=== PATIENT | female | born 1970 | race Caucasian/White ===

== ENCOUNTER 2016-09-10 18:41 | Emergency (ER) | payer OTHER ==
[2016-09-10 19:50] VITALS: BP 124/72
--- NOTE | 2016-09-10 19:55 | UC ---
General HPI - HPI Summary HPI Summary: For several days pt has been noticing worsening swelling in bilat ankles, L>R. Now having calf cramping and swelling in hands/wrists. Pt has hx of heart failure/resp failure about 2 years ago. Denies any SOB, chest pains, or activity intolerance. In the last 4-5 months battled prolonged respiratory infection with 4 rounds of abx and 5 rounds of steroids; most recent steroids finished about 3.5 weeks ago. Pt is trying to lose weight and has measured a 6 pound weight gain in the last 5 days. - History of Current Complaint Stated Complaint: LEFT FOOT INJURY Time Seen by Provider: 09/10/16 19:30 Hx Obtained From: Patient Onset/Duration: Gradual Onset, Lasting Days Timing: Constant Onset Severity: Mild Current Severity: Mild Associated Signs & Symptoms: Positive: Edema. Negative: Abdominal Pain, Anticoagulation Therapy, Cough, Chest Pain, Palpitations, Recent Medication Changes Related Hx: Recent Illness - bronchitis/pneumonia - Allergy/Home Medications Allergies/Adverse Reactions: Allergies Allergy/AdvReac Type Severity Reaction Status Date / Time Penicillins AdvReac Intermediate Rash Verified 09/10/16 19:31 Sulfa Drugs AdvReac Intermediate Rash And Verified 09/10/16 19:31 Itching PMH/Surg Hx/FS Hx/Imm Hx Endocrine History: Hypothyroidism Cardiovascular History: Congestive Heart Failure Respiratory History: COPD Other Respiratory History: hx resp failure - Surgical History Surgical History: Yes Surgery Procedure, Year, and Place: right foot 2014. Bronchoscopy 2013 AdenoidectomyMyringotomyExc Uterine polyp 2006 - Family History Known Family History: Positive: None - Social History Alcohol Use: None Substance Use Type: None Smoking Status (MU): Never Smoked Tobacco Have You Smoked in the Last Year: No - Immunization History Most Recent Influenza Vaccination: unsure Most Recent Tetanus Shot: unknown Most Recent Pneumonia Vaccination: never Review of Systems Constitutional: Negative Skin: Negative Eyes: Negative ENT: Negative Respiratory: Negative Cardiovascular: Negative Gastrointestinal: Negative Genitourinary: Negative Motor: Negative Neurovascular: Negative Musculoskeletal: Edema Neurological: Negative Psychological: Negative All Other Systems Reviewed And Are Negative: Yes Physical Exam Triage Information Reviewed: Yes Appearance: Well-Appearing, Obese Vital Signs: Initial Vital Signs Temp 98.0 F 09/10/16 19:20 Pulse 69 09/10/16 19:20 Resp 16 09/10/16 19:20 BP 124/72 09/10/16 19:20 Pulse Ox 99 09/10/16 19:20 Vital Signs Reviewed: Yes Eye Exam: Normal, Other - PERRL Eyes: Positive: Conjunctiva Clear ENT Exam: Normal ENT: Positive: Normal ENT inspection, Hearing grossly normal, Pharynx normal, TMs normal Dental Exam: Normal Neck exam: Normal Neck: Positive: Supple Respiratory Exam: Normal Respiratory: Positive: Chest non-tender, Lungs clear, Normal breath sounds, No respiratory distress, No accessory muscle use Cardiovascular Exam: Normal Cardiovascular: Positive: RRR, No Murmur Musculoskeletal: Positive: Edema @ - BUE, BLE Neurological Exam: Normal Neurological: Positive: Alert Psychological Exam: Normal Course/Dx - Differential Dx - Multi-Symptom Provider Diagnoses: peripheral edema with history of heart failure - Physician Notifications Discussed Patient Care With: Farzana Colon Time Discussed With Above Provider: 19:50 Instructed by Provider To: MD Will See In ED Discharge - Discharge Plan Condition: Stable Disposition: AGAINST MEDICAL ADVICE
== END 2016-09-10 19:58 | disposition left against medical advice (07) ==
LOC: UCCORT 18:41
DX: R60.0 Localized edema (principal); I50.9 Heart failure, unspecified; E03.9 Hypothyroidism, unspecified; E66.9 Obesity, unspecified; Z88.0 Allergy status to penicillin; Z88.2 Allergy status to sulfonamides
CPT/HCPCS: 99212; G0463

== ENCOUNTER 2016-09-10 21:34 | Emergency (ER) | payer OTHER ==
[2016-09-10] MEDS ORDERED: Aspirin Low Dose CHEW TAB* 81 MG PO ONE (22:48)
[2016-09-10 23:19] LABS: Hematocrit 41 % (35-47); Hemoglobin 13.5 g/dl (12.0-16.0); Mean Corpuscular HGB Conc 33 g/dl (31-36); Mean Corpuscular Hemoglobin 29 pg (27-31); Mean Corpuscular Volume 88 fL (80-97); Mean Platelet Volume 10 um3 (7.4-10.4); Red Cell Distribution Width 13 % (10.5-15); White Blood Count 11.5 10^3/ul (3.5-10.8)
[2016-09-10 23:31] LABS: Albumin 4.3 g/dL (3.2-5.2); BUN/Creatinine Ratio 27.5 (8-20); Calcium 9.4 mg/dL (8.6-10.3); EGFR African American 86.4 (>60); EGFR Non-African American 67.2 (>60); Globulin 2.7 g/dL (2-4); Magnesium 2.3 mg/dL (1.9-2.7); Potassium 3.9 mmol/L (3.5-5.0); Total Bilirubin 0.5 mg/dL (0.2-1.0)
[2016-09-10 23:33] LABS: Troponin I 0.01 ng/mL (<0.04)
[2016-09-10 23:39] LABS: T4 8.51 mcg/mL (6.09-12.23)
[2016-09-10 23:40] LABS: TSH (Thyroid Stimulating Horm) 0.7 mcIU/mL (0.34-5.60)
[2016-09-11 00:35] LABS: Urine Bilirubin Negative (Negative); Urine Glucose Negative (Negative); Urine Nitrite Negative (Negative)
[2016-09-11 01:56] VITALS: BP 107/66
--- NOTE | 2016-09-11 02:43 | ED ---
Sav Rivera Thomas, scribed for Farzana Colon MD on 09/10/16 at 2305 . Lower Extremity - HPI Summary HPI Summary: The pt is a 43 y/o F with a Hx of heart failure [place] [facility] [place] to the ED c/o bilateral pedal edema (L>R) that began about a week ago. Two years ago, she had heart and respiratory failure. She additionally c/o recent weight gain (6 pounds in the last 5 days), bilateral leg pain, calf cramping, hand swelling, and hoarseness. The pt denies CP, SOB,fever and dyspnea on exertion. She rates her current pain level 8/10 in her legs. She reports past pedal edema similar to her symptoms now. An echocardiogram performed two years ago showed an ejection fraction of 50%. In the last 4-5 months she has had prolonged respiratory infection of PNA with 4 rounds of antibiotics and 5 rounds of steroids. Her most recent course of steroids was completed 3.5 weeks ago. PMHx: CHF, pulmonary hypertension, PNA, ventricular ectopy, tracheomalacia, ventricular bigeminy, bronchomalasia, chronic bronchitis , GERD. PSHx: bronchoscopy 2012, adenoidectomy, myringotomy. SHx: no alcohol, no illicit drugs, never smoked tobacco. FHx: colon polyps, DM. She says that she has recently cut down on her sodium intake. Her next appointment with her visual display manager is in three months. She has seen Dr. Pepper for the hoarseness without definite dx, and she has also been endoscoped by Dr. Oh without definite dx of her hoarseness. Pt states that the left ankle and foot pain is new and she has not sought medical attention for this yet. She does not recall any definite injury. She has had surgery on her right foot with Dr. Soriano ( tour production supervisor). Also sees Dr. Ocasio, Dr. Manzano and Dr. Baker. - History of Current Complaint Chief Complaint: EDGeneral Stated Complaint: SWELLING IN LT FT Time Seen by Provider: 09/10/16 22:20 Hx Obtained From: Patient Hx Last Menstrual Period: MIRENA Mechanism Of Injury: Unknown - no known injury Onset of Pain: Days - 6 days Onset/Duration: Days Severity Initially: Moderate Severity Currently: Severe Pain Intensity: 8 Pain Scale Used: 0-10 Numeric Timing: Constant Location: Is Discrete @ - bilat LE, left worse than right Character Of Pain: Aching Associated Signs And Symptoms: Positive: Swelling - pedal, L>R, Other - POS: recent weight gain, calf cramping. Negative: Fever Aggravating Factor(s): Nothing Alleviating Factor(s): Nothing Able to Bear Weight: Yes Related History: Other - Hx of heart failure and pedal edema - Allergies/Home Medications Allergies/Adverse Reactions: Allergies Allergy/AdvReac Type Severity Reaction Status Date / Time ERIKA Inhibitors Allergy Unknown Verified 09/10/16 22:08 Reaction Details Penicillins AdvReac Intermediate Rash Verified 09/10/16 19:31 Sulfa Drugs AdvReac Intermediate Rash And Verified 09/10/16 19:31 Itching Home Medications: Home Medications Calcium Ascorbate [Vitamin C] 500 mg PO DAILY 09/10/16 [History Confirmed ] PMH/Surg Hx/FS Hx/Imm Hx Previously Healthy: No Endocrine/Hematology History: Reports: Hx Thyroid Disease - hypothyroidism, Hx Anemia - HX OF MILD IN THE PAST Denies: Hx Diabetes Cardiovascular History: Reports: Hx Congestive Heart Failure, Other Cardiovascular Problems/Disorders - IRREGULAR RHYTHM, pulmonary hypertension, ventricular ectopy Denies: Hx Hypertension Respiratory History: Reports: Hx Asthma, Hx Chronic Bronchitis, Hx Pneumonia, Hx Sleep Apnea, Other Respiratory Problems/Disorders - Bronchomalasia, PNA, tracheomalacia Denies: Hx Chronic Obstructive Pulmonary Disease (COPD) GI History: Reports: Hx Gastroesophageal Reflux Disease Denies: Hx Ulcer Musculoskeletal History: Reports: Other Musculoskeletal History - Bilateral feet cysts Sensory History: Denies: Hx Contacts or Glasses, Hx Hearing Aid Opthamlomology History: Denies: Hx Contacts or Glasses Psychiatric History: Reports: Hx Depression, Other Psychiatric Issues/Disorders - OCD - Surgical History Surgery Procedure, Year, and Place: Bronchoscopy 2013 AdenoidectomyMyringotomyExc Uterine polyp 2006 Hx Anesthesia Reactions: Yes - NAUSEA Infectious Disease History: No Infectious Disease History: Denies: Hx Hepatitis, Hx Human Immunodeficiency Virus (HIV), Traveled Outside the [place] in Last 30 Days - Family History Known Family History: Positive: Other - daughter with achalasia - Social History Lives: With Family Alcohol Use: None Substance Use Type: Reports: None Smoking Status (MU): Never Smoked Tobacco Have You Smoked in the Last Year: No Review of Systems Positive: Other - POS: recent weight gain. Negative: Fever Eyes: Negative ENT: Negative Positive: Other - POS: voice hoarseness Cardiovascular: Negative Negative: Chest Pain Respiratory: Negative Negative: Shortness Of Breath, Other - NEG: dyspnea on exertion Gastrointestinal: Negative Genitourinary: Negative Positive: Edema - pedal, onset 7 days ago, L>R, Other - POS: calf cramping, bilateral leg pain, hand swelling Skin: Negative Neurological: Negative Psychological: Normal All Other Systems Reviewed And Are Negative: Yes Physical Exam Triage Information Reviewed: Yes Vital Signs On Initial Exam: Initial Vitals Temp Pulse Resp BP Pulse Ox 97.1 F 67 18 128/66 97 09/10/16 21:38 09/10/16 21:38 09/10/16 21:38 09/10/16 21:38 09/10/16 21:38 Vital Signs Reviewed: Yes Appearance: Positive: Well-Appearing, Well-Nourished, Pain Distress Skin: Positive: Warm, Skin Color Reflects Adequate Perfusion Head/Face: Positive: Normal Head/Face Inspection Eyes: Positive: Conjunctiva Clear ENT: Positive: Normal ENT inspection Neck: Positive: Supple Respiratory/Lung Sounds: Positive: Clear to Auscultation, Breath Sounds Present , Other - No respiratory distress Cardiovascular: Positive: RRR, Pulses are Symmetrical in both Upper and Lower Extremities, Other - Brisk cap refill. Negative: Rub Abdomen Description: Positive: Nontender, Soft. Negative: Splenomegaly Musculoskeletal: Positive: Strength/ROM Intact, Edema Left, Edema Right, Other - exquisite pain left post tibial tendon, pain left base 5th metatarsal, swelling lat malleolus left ankle Neurological: Positive: Sensory/Motor Intact, Alert, Oriented to Person Place, Time, Speech Normal Psychiatric: Positive: Normal Diagnostics - Vital Signs Vital Signs Temp Pulse Resp BP Pulse Ox 09/10/16 21:49 98 F 67 18 128/66 98 09/10/16 21:38 97.1 F 67 18 128/66 97 - Laboratory Lab Results: Lab Results 09/10/16 09/10/16 09/10/16 Range/Units 22:35 22:35 22:35 WBC 11.5 H (3.5-10.8) 10^3/ul RBC 4.60 (4.0-5.4) 10^6/ul Hgb 13.5 (12.0-16.0) g/dl Hct 41 (35-47) % MCV 88 (80-97) fL MCH 29 (27-31) pg MCHC 33 (31-36) g/dl RDW 13 (10.5-15) % Plt Count 284 (150-450) 10^3/ul MPV 10 (7.4-10.4) um3 Neut % (Auto) 66.4 (38-83) % Lymph % (Auto) 26.2 (25-47) % [place] % (Auto) 5.0 (1-9) % Eos % (Auto) 1.5 (0-6) % Baso % (Auto) 0.9 (0-2) % Absolute Neuts (auto) 7.7 (1.5-7.7) 10^3/ul Absolute Lymphs (auto) 3.0 (1.0-4.8) 10^3/ul Absolute Monos (auto) 0.6 (0-0.8) 10^3/ul Absolute Eos (auto) 0.2 (0-0.6) 10^3/ul Absolute Basos (auto) 0.1 (0-0.2) 10^3/ul Absolute Nucleated RBC 0.01 10^3/ul Nucleated RBC % 0.1 INR (Anticoag Therapy) (0.89-1.11) APTT (26.0-36.3) seconds D-Dimer, Quantitative (Less Than 230) ng/mL Sodium 135 (133-145) mmol/L Potassium 3.9 (3.5-5.0) mmol/L Chloride 104 (101-111) mmol/L Carbon Dioxide 24 (22-32) mmol/L Anion Gap 7 (2-11) mmol/L BUN 25 H (6-24) mg/dL Creatinine 0.91 (0.51-0.95) mg/dL Est GFR ( Amer) 86.4 (>60) Est GFR (Non-Af Amer) 67.2 (>60) BUN/Creatinine Ratio 27.5 H (8-20) Glucose 89 (70-100) mg/dL Lactic Acid 0.9 (0.5-2.0) mmol/L Calcium 9.4 (8.6-10.3) mg/dL Magnesium 2.3 (1.9-2.7) mg/dL Total Bilirubin 0.50 (0.2-1.0) mg/dL AST 20 (13-39) U/L ALT 19 (7-52) U/L Alkaline Phosphatase 63 (34-104) U/L Total Creatine Kinase 178 (10-223) U/L Troponin I 0.01 (<0.04) ng/mL B-Natriuretic Peptide ( - 100) pg/mL Total Protein 7.0 (6.4-8.9) g/dL Albumin 4.3 (3.2-5.2) g/dL Globulin 2.7 (2-4) g/dL Albumin/Globulin Ratio 1.6 (1-3) TSH 0.70 (0.34-5.60) mcIU/mL Thyroxine (T4) 8.51 (6.09-12.23) mcg/mL Beta HCG, Quant 0.86 mIU/mL Urine Color Urine Appearance Urine pH (5-9) Ur Specific [place] (1.010-1.030) Urine Protein (Negative) Urine Ketones (Negative) Urine Blood (Negative) Urine Nitrate (Negative) Urine Bilirubin (Negative) Urine Urobilinogen (Negative) Ur Leukocyte Esterase (Negative) Urine Glucose (Negative) Urine Ascorbic Acid (Negative) 09/10/16 09/10/16 09/10/16 Range/Units 22:35 22:35 23:57 WBC (3.5-10.8) 10^3/ul RBC (4.0-5.4) 10^6/ul Hgb (12.0-16.0) g/dl Hct (35-47) % MCV (80-97) fL MCH (27-31) pg MCHC (31-36) g/dl RDW (10.5-15) % Plt Count (150-450) 10^3/ul MPV (7.4-10.4) um3 Neut % (Auto) (38-83) % Lymph % (Auto) (25-47) % [place] % (Auto) (1-9) % Eos % (Auto) (0-6) % Baso % (Auto) (0-2) % Absolute Neuts (auto) (1.5-7.7) 10^3/ul Absolute Lymphs (auto) (1.0-4.8) 10^3/ul Absolute Monos (auto) (0-0.8) 10^3/ul Absolute Eos (auto) (0-0.6) 10^3/ul Absolute Basos (auto) (0-0.2) 10^3/ul Absolute Nucleated RBC 10^3/ul Nucleated RBC % INR (Anticoag Therapy) 0.87 L (0.89-1.11) APTT 29.2 (26.0-36.3) seconds D-Dimer, Quantitative < 200 (Less Than 230) ng/mL Sodium (133-145) mmol/L Potassium (3.5-5.0) mmol/L Chloride (101-111) mmol/L Carbon Dioxide (22-32) mmol/L Anion Gap (2-11) mmol/L BUN (6-24) mg/dL Creatinine (0.51-0.95) mg/dL Est GFR ( Amer) (>60) Est GFR (Non-Af Amer) (>60) BUN/Creatinine Ratio (8-20) Glucose (70-100) mg/dL Lactic Acid (0.5-2.0) mmol/L Calcium (8.6-10.3) mg/dL Magnesium (1.9-2.7) mg/dL Total Bilirubin (0.2-1.0) mg/dL AST (13-39) U/L ALT (7-52) U/L Alkaline Phosphatase (34-104) U/L Total Creatine Kinase (10-223) U/L Troponin I (<0.04) ng/mL B-Natriuretic Peptide 84 ( - 100) pg/mL Total Protein (6.4-8.9) g/dL Albumin (3.2-5.2) g/dL Globulin (2-4) g/dL Albumin/Globulin Ratio (1-3) TSH (0.34-5.60) mcIU/mL Thyroxine (T4) (6.09-12.23) mcg/mL Beta HCG, Quant mIU/mL Urine Color Yellow Urine Appearance Clear Urine pH 6.0 (5-9) Ur Specific [place] 1.013 (1.010-1.030) Urine Protein Negative (Negative) Urine Ketones Negative (Negative) Urine Blood Negative (Negative) Urine Nitrate Negative (Negative) Urine Bilirubin Negative (Negative) Urine Urobilinogen Negative (Negative) Ur Leukocyte Esterase Negative (Negative) Urine Glucose Negative (Negative) Urine Ascorbic Acid * H (Negative) Result Diagrams: 09/10/16 22:35 09/10/16 22:35 Lab Statement: Any lab studies that have been ordered have been reviewed, and results considered in the medical decision making process. - EKG 22:20 Cardiac Rate: NL - 92 BPM EKG Rhythm: Sinus Rhythm - Normal AV, normal IV conduction time, normal QTc, normal axis, ventricular bigeminy EKG Comparison: No Significant Change - to 06/29/2014 Re-Evaluation - Re-Evaluation First Eval Re-Evaluation Time: 00:25 - ankle and foot pain and swelling is new. Will check xrays Change: Unchanged Lower Extremity Course/Dx - Course Assessment/Plan: The pt is a 43 y/o F with a Hx of heart failure [place] [facility] [place] to the ED c/o bilateral pedal edema (L>R) that began about a week ago. Two years ago, she had heart and respiratory failure. She additionally c/o recent weight gain (6 pounds in the last 5 days), bilateral leg pain, calf cramping, hand swelling, and hoarseness. The pt denies CP, SOB, and dyspnea on exertion. She rates her current pain level 8/10. She reports past pedal edema similar to her symptoms now. An echocardiogram performed two years ago showed an ejection fraction of 50%. In the last 4-5 months she has had prolonged respiratory infection of PNA with 4 rounds of antibiotics and 5 rounds of steroids. Her most recent course of steroids was completed 3.5 weeks ago. PMHx: CHF, pulmonary hypertension, PNA, ventricular ectopy, tracheomalacia , ventricular bigeminy, bronchomalasia, chronic bronchitis, GERD. PSHx: bronchoscopy 2013, adenoidectomy, myringotomy. SHx: no alcohol, no illicit drugs , never smoked tobacco. FHx: colon polyps, DM. She says that she has recently cut down on her sodium intake. Her next appointment with her visual display manager is in three months. An EKG taken at 22:20 revealed sinus rhythm at 92 BPM, normal AV, normal IV conduction time, normal QTc, normal axis, ventricular bigeminy, and compared to 06/29/2014 there is no change. CXR reveals __NAD per ED MD reading. Bloodwork shows WBC 11.5., BUN 25, BUN/Creatinine 27.5. UA shows _sp grav 1.013, all neg except ascorbic acid. Xray of ankle and foot on left both neg per ED MD reading. Patients medication reviewed this visit. Blood pressure noted. In the ED course she was given ASA. Patient is diagnosed with pedal edema and left ankle sprain. Patient will be placed in CAM boot with crutches and non weight bearing and advised to follow up with her physicians and orthopedics this week. Pt is agreeable with this plan. - Diagnoses Differential Diagnosis/HQI/PQRI: Positive: Cellulitis, Fracture (Closed), Sprain , Strain, Other - CHF, hypothyroidism Provider Diagnoses: Pedal edema, Leg pain, left, Ventricular bigeminy Discharge - Discharge Plan Condition: Stable Disposition: HOME Patient Education Materials: Ankle Sprain (ED), Crutch Instructions (ED), Leg Edema (ED) Referrals: Levy Baker MD [Primary Care Provider] - 7 Days (sooner, if worse ) Delphine Gregorio MD [Medical Doctor] - As Soon As Possible Additional Instructions: Your labs did not reveal an obvious source for your leg edema tonight. Your chest xray unofficial reading was no acute disease. We will contact you if there is a change in the reading. Your EKG showed the bigeminy that you state you have had. Wear the CAM boot and use the crutches without bearing weight until you are evaluated by orthopedics. The unofficial reading of your ankle and foot xrays is no fracture noted. Have definite follow up with all of your physicians. Return to the ER if you have any new or worsening symptoms. The documentation as recorded by the Sav nova Thomas accurately reflects the service I personally performed and the decisions made by me, Farzana Colon MD.
--- NOTE | 2016-09-11 07:24 | RAD ---
INDICATION: Edema, history of cardiomyopathy. COMPARISON: Comparison is made with a prior chest x-ray study from June 07, 2016. TECHNIQUE: Dual-energy PA and lateral views of the chest were obtained. FINDINGS: The heart is within normal limits in size. Mediastinal and hilar contours appear within normal limits. The lungs are clear. No pleural effusion is present. There is mild deformity of the right sixth and seventh lateral ribs most consistent with old fractures which are unchanged. IMPRESSION: NO EVIDENCE FOR ACTIVE CARDIOPULMONARY DISEASE.
--- NOTE | 2016-09-11 07:31 | RAD ---
INDICATION: Atraumatic pain and swelling. TECHNIQUE: 3 views of the left ankle were obtained. FINDINGS: There is diffuse soft tissue swelling. No acute fracture is seen. There is mild lucency noted along the lateral superior articular surface of the talus on one view possibly representing an osteochondral lesion although nonspecific. Joint spaces appear maintained. No erosive changes are seen. There are moderate size calcaneal spurs. There is mild osteoarthritic change in the tibiotalar joint. IMPRESSION: 1. DIFFUSE SOFT TISSUE SWELLING. 2. POSSIBLE SMALL OSTEOCHONDRAL LESION LATERAL TALUS. 3. MILD OSTEOARTHRITIC CHANGE.
--- NOTE | 2016-09-11 07:32 | RAD ---
INDICATION: Left foot injury. TECHNIQUE: 3 views of the left foot were obtained. FINDINGS: There is soft tissue swelling around the mid and hindfoot. No fracture or significant focal osseous abnormality is seen. Joint spaces appear maintained. IMPRESSION: SOFT TISSUE SWELLING.
== END 2016-09-11 02:47 | disposition home or self-care (01) ==
LOC: ED 21:34
DX: M79.605 Pain in left leg (principal); R00.8 Other abnormalities of heart beat; R60.0 Localized edema
CPT/HCPCS: 36415; 71020; 80053; 81003; 82550; 83605; 83735; 83880; 84436; 84443; 84484; 84702; 85025; 85379; 85610; 85730; 93005; 99284

== ENCOUNTER 2018-04-24 14:24 | Emergency (ER) | payer OTHER ==
[2018-04-24 16:11] VITALS: BP 110/57
--- NOTE | 2018-04-24 16:20 | UC ---
Lower Extremity/Ankle HPI - HPI Summary HPI Summary: 48 yo female with left ankle pain and foot pain s/p slip and fall on ice tender medial ankle and lateral foot see manager group - History of Current Complaint Chief Complaint: UCLowerExtremity Stated Complaint: LEFT FOOT PAIN Time Seen by Provider: 04/24/18 16:11 Hx Obtained From: Patient Hx Last Menstrual Period: IUD Onset/Duration: Sudden Onset, Lasting Weeks Severity Initially: Severe Severity Currently: Moderate Pain Intensity: 8 Pain Scale Used: 0-10 Numeric Aggravating Factor(s): Standing, Ambulation Alleviating Factor(s): Rest, Elevation Able to Bear Weight: Yes - Allergies/Home Medications Allergies/Adverse Reactions: Allergies Allergy/AdvReac Type Severity Reaction Status Date / Time ERIKA Inhibitors Allergy Unknown Unknown Verified 04/24/18 16:07 Reaction Details Penicillins Allergy Unknown Rash Verified 04/24/18 16:07 Sulfa (Sulfonamide Allergy Unknown Rash And Verified 04/24/18 16:07 Antibiotics) Itching PMH/Surg Hx/FS Hx/Imm Hx Previously Healthy: Yes Endocrine History: Dyslipidemia Cardiovascular History: Hypertension Respiratory History: Asthma - Surgical History Surgical History: Yes Surgery Procedure, Year, and Place: Bronchoscopy 2012 Adenoidectomy; Myringotomy Exc; Uterine polyp 2005. 09/2013 RIGHT FOOT REMOVED CYSTS - Family History Known Family History: Positive: None, Other - daughter with achalasia - Social History Alcohol Use: None Substance Use Type: None Smoking Status (MU): Never Smoked Tobacco Have You Smoked in the Last Year: No - Immunization History Most Recent Influenza Vaccination: unsure Most Recent Tetanus Shot: unknown Most Recent Pneumonia Vaccination: never Review of Systems All Other Systems Reviewed And Are Negative: Yes Constitutional: Positive: Negative Skin: Positive: Negative Eyes: Positive: Negative ENT: Positive: Negative Respiratory: Positive: Negative Cardiovascular: Positive: Negative Gastrointestinal: Positive: Negative Genitourinary: Positive: Negative Motor: Positive: Negative Neurovascular: Positive: Negative Musculoskeletal: Positive: Arthralgia Neurological: Positive: Negative Psychological: Positive: Negative Physical Exam Triage Information Reviewed: Yes Appearance: Well-Appearing, No Pain Distress, Well-Nourished Vital Signs: Initial Vital Signs Temp 97.8 F 04/24/18 16:04 Pulse 70 04/24/18 16:04 Resp 18 04/24/18 16:04 BP 110/57 04/24/18 16:04 Pulse Ox 97 04/24/18 16:04 Vital Signs Reviewed: Yes Eyes: Positive: Conjunctiva Clear ENT: Positive: Hearing grossly normal. Negative: Nasal congestion, Nasal drainage, Trismus, Muffled voice, Hoarse voice Dental Exam: Normal Neck: Positive: Nontender, No Lymphadenopathy Respiratory: Positive: Lungs clear, Normal breath sounds, No respiratory distress, No accessory muscle use Cardiovascular: Positive: RRR, No Murmur Musculoskeletal: Positive: Edema @ - MM left, tender here and base of 5th Neurological: Positive: Alert Psychological Exam: Normal Skin Exam: Normal Images Feet (Multiple View): 1 - tender /swollen 2 - tender Diagnostics - Radiology No standard instances Radiology Interpretation Completed By: Radiologist Summary of Radiographic Findings: left foot and ankle no fx Lower Extremity Course/Dx - Differential Dx/Diagnosis Provider Diagnosis: Sprain of left medial ankle joint, Sprain of left foot Discharge - Sign-Out/Discharge Documenting (check all that apply): Patient Departure All imaging exams completed and their final reports reviewed: Yes - Discharge Plan Condition: Stable Disposition: HOME Patient Education Materials: Ankle Sprain (ED) Referrals: Tiffani Alvarado MD [Primary Care Provider] - Additional Instructions: erika splint ice see your orthopedist re ankle sprain and see your manager group as planned - Billing Disposition and Condition Condition: STABLE Disposition: Home
== END 2018-04-24 17:47 | disposition home or self-care (01) ==
LOC: UCCORT 14:24
DX: S93.402A Sprain of unspecified ligament of left ankle, initial encounter (principal); I10 Essential (primary) hypertension; J45.909 Unspecified asthma, uncomplicated; Z88.1 Allergy status to other antibiotic agents; Z88.0 Allergy status to penicillin; Z88.8 Allergy status to other drugs, medicaments and biological substances; W00.0XXA Fall on same level due to ice and snow, initial encounter; Y92.9 Unspecified place or not applicable
CPT/HCPCS: 99213; G0463

== ENCOUNTER 2018-05-16 18:37 | Emergency (ER) | payer OTHER ==
[2018-05-16 21:18] VITALS: BP 123/67
--- NOTE | 2018-05-16 21:31 | UC ---
Throat Pain/Nasal Krunal HPI - HPI Summary HPI Summary: Pt c/o nasal congestion, cough and sinus pressure and pain, right side sinus more painful than left - History of Current Complaint Chief Complaint: UCGeneralIllness Stated Complaint: POSSIBLE SINUS INFECTION Time Seen by Provider: 05/16/18 21:12 Hx Obtained From: Patient Hx Last Menstrual Period: mirena ?: No Onset/Duration: Gradual Onset, Lasting Days, Still Present Severity: Moderate Pain Intensity: 4 Cough: Nonproductive Associated Signs & Symptoms: Positive: Sinus Discomfort, Nasal Discharge - Epiglottits Risk Factors Epiglottis Risk Factors: Negative - Allergies/Home Medications Allergies/Adverse Reactions: Allergies Allergy/AdvReac Type Severity Reaction Status Date / Time ERIKA Inhibitors Allergy Unknown Unknown Verified 05/16/18 21:13 Reaction Details Penicillins Allergy Unknown Rash Verified 05/16/18 21:13 Sulfa (Sulfonamide Allergy Unknown Rash And Verified 05/16/18 21:13 Antibiotics) Itching Home Medications: Home Medications Cyanocobalamin TAB* [Vitamin B12 TAB*] 3,000 mcg PO DAILY 05/16/18 [History Confirmed 05/16/18] guaiFENesin [Mucinex] 1,200 mg PO ONCE 05/16/18 [History Confirmed 05/16/18] PMH/Surg Hx/FS Hx/Imm Hx Previously Healthy: Yes Cardiovascular History: Hypertension - Surgical History Surgical History: Yes Surgery Procedure, Year, and Place: Bronchoscopy 2012 Adenoidectomy; Myringotomy Exc; Uterine polyp 09/2013 RIGHT FOOT REMOVED CYSTS - Family History Known Family History: Positive: Cardiac Disease, Other - daughter with achalasia - Social History Occupation: Employed Full-time Lives: With Family Alcohol Use: None Substance Use Type: None Smoking Status (MU): Never Smoked Tobacco Have You Smoked in the Last Year: No - Immunization History Most Recent Influenza Vaccination: unsure Most Recent Tetanus Shot: unknown Most Recent Pneumonia Vaccination: never Review of Systems All Other Systems Reviewed And Are Negative: Yes Constitutional: Positive: Fatigue Skin: Positive: Negative Eyes: Positive: Negative ENT: Positive: Nasal Discharge, Sinus Congestion, Sinus Pain/Tenderness Respiratory: Positive: Cough Cardiovascular: Positive: Negative Gastrointestinal: Positive: Negative Genitourinary: Positive: Negative Motor: Positive: Negative Neurovascular: Positive: Negative Musculoskeletal: Positive: Myalgia Neurological: Positive: Headache Psychological: Positive: Negative Is Patient Immunocompromised?: No Physical Exam Triage Information Reviewed: Yes Appearance: Ill-Appearing, Obese Vital Signs: Initial Vital Signs Temp 98.7 F 05/16/18 21:10 Pulse 82 05/16/18 21:10 Resp 18 05/16/18 21:10 BP 123/67 05/16/18 21:10 Pulse Ox 99 05/16/18 21:10 Vital Signs Reviewed: Yes Eye Exam: Normal ENT: Positive: Nasal congestion, Sinus tenderness Dental Exam: Normal Neck exam: Normal Respiratory Exam: Normal Cardiovascular Exam: Normal Cardiovascular: Positive: Murmur:Sys:Grade _?_/ Musculoskeletal Exam: Normal Neurological Exam: Normal Psychological Exam: Normal Skin Exam: Normal Throat Pain/Nasal Course/Dx - Differential Dx/Diagnosis Differential Diagnosis/HQI/PQRI: Influenza, Sinusitis, URI Provider Diagnosis: Sinusitis Discharge - Sign-Out/Discharge Documenting (check all that apply): Patient Departure All imaging exams completed and their final reports reviewed: No Studies - Discharge Plan Condition: Stable Disposition: HOME Prescriptions: DOXYcycline CAP(*) [DOXYcycline 100MG CAP(*)] 100 mg PO Q12H #20 cap Patient Education Materials: Sinusitis (ED) Referrals: Tiffani Alvarado MD [Primary Care Provider] - If Needed - Billing Disposition and Condition Condition: STABLE Disposition: Home
[2018-05-16] MEDS ORDERED: DOXYcycline CAP(*) 100 MG PO ONE (21:32)
== END 2018-05-16 21:44 | disposition home or self-care (01) ==
LOC: EDUNIT# → UCCORT 18:37
DX: J32.9 Chronic sinusitis, unspecified (principal); I10 Essential (primary) hypertension; Z88.0 Allergy status to penicillin; Z88.2 Allergy status to sulfonamides; Z91.09 Other allergy status, other than to drugs and biological substances
CPT/HCPCS: 99212; A9270-GY; G0463

== ENCOUNTER 2018-09-23 12:42 | Emergency (ER) | payer OTHER ==
--- NOTE | 2018-09-23 13:22 | UC ---
Complaint Female HPI - HPI Summary HPI Summary: 48 yo female presents with right flank pain since yesterday. She tells me that she has a history of ovarian cysts, uterine fibroids, and many UTIs. Last night she developed right flank pain that felt better with ibuprofen. She feels that she has to "push" to urinate and her bladder doesn't feel empty. Today the right flank pain is improved, but is having right pelvic pain mild. She has not taken anything today for her symptoms. Denies fever, chills hematuria, n/v/d/c, burning urination, urinary frequency, vaginal discharge or bleeding. No hx of kidney stones. - History Of Current Complaint Stated Complaint: URINARY Time Seen by Provider: 09/23/18 13:22 Hx Obtained From: Patient Hx Last Menstrual Period: mirena Onset/Duration: Sudden Onset Severity Initially: Moderate Severity Currently: Mild Pain Intensity: 4 Pain Scale Used: 0-10 Numeric - Allergies/Home Medications Allergies/Adverse Reactions: Allergies Allergy/AdvReac Type Severity Reaction Status Date / Time ERIKA Inhibitors Allergy Unknown Unknown Verified 09/23/18 13:25 Reaction Details Penicillins Allergy Unknown Rash Verified 09/23/18 13:25 Sulfa (Sulfonamide Allergy Unknown Rash And Verified 09/23/18 13:25 Antibiotics) Itching Home Medications: Home Medications Albuterol HFA INHALER* [Ventolin HFA Inhaler*] 1 - 2 puff INH Q4H PRN 09/23/18 [ History Confirmed 09/23/18] Levothyroxine TAB* [Synthroid TAB*] 25 mcg PO DAILY 09/23/18 [History Confirmed 09/23/18] Pantoprazole TAB * [Protonix TAB*] 40 mg PO BID 09/23/18 [History Confirmed 06/08] PMH/Surg Hx/FS Hx/Imm Hx Endocrine History: Hypothyroidism Cardiovascular History: Hypertension Respiratory History: Asthma - Surgical History Surgical History: Yes Surgery Procedure, Year, and Place: Bronchoscopy 2012 Adenoidectomy; Myringotomy Exc; Uterine polyp 2005. 09/2013 RIGHT FOOT REMOVED CYSTS - Family History Known Family History: Positive: Cardiac Disease, Other - daughter with achalasia - Social History Lives: With Family Alcohol Use: None Substance Use Type: None Smoking Status (MU): Never Smoked Tobacco Have You Smoked in the Last Year: No - Immunization History Most Recent Influenza Vaccination: unsure Most Recent Tetanus Shot: unknown Most Recent Pneumonia Vaccination: never Review of Systems All Other Systems Reviewed And Are Negative: Yes Constitutional: Positive: Negative Skin: Positive: Negative Respiratory: Positive: Negative Cardiovascular: Positive: Negative Gastrointestinal: Positive: Negative Genitourinary: Positive: Other - Right flank pain Neurovascular: Positive: Negative Musculoskeletal: Positive: Negative Neurological: Positive: Negative Psychological: Positive: Negative Physical Exam - Summary Physical Exam Summary: GENERAL: NAD. WDWN. No pain distress. SKIN: No rashes, sores, lesions, or open wounds. NECK: Supple. Nontender. No lymphadenopathy. CHEST: CTAB. No r/r/w. No accessory muscle use. Breathing comfortably and in no distress. CV: Pulses intact. Cap refill <2seconds ABDOMEN: Soft. NTTP. No distention or guarding. No CVA tenderness. Bowel sounds present NEURO: Alert. PSYCH: Age appropriate behavior. Triage Information Reviewed: Yes Vital Signs: Vital Signs: Temp Pulse Resp BP Pulse Ox 97.3 F 66 15 108/53 99 09/23/18 13:23 09/23/18 13:23 09/23/18 13:23 09/23/18 13:23 09/23/18 13:23 Laboratory Tests 09/23/18 13:37 POC Urine Color Yellow POC Urine Clarity Clear POC Urine pH 5.5 POC Ur Specif [place] 1.025 POC Urine Protein Negative POC Ur Glucose (UA) Negative POC Urine Ketones Negative POC Urine Blood Negative POC Urine Nitrite Negative POC Urine Bilirubin Negative POC Urine Urobilinogen 0.2 POC U Leukocyte Esteras Negative Vital Signs Reviewed: Yes Complaint Female Dx - Course Course Of Treatment: UA negative. Pt declined pelvic exam today to further evaluate. CT abd/pelv: IMPRESSION: 1. A 5 MM CALCULUS IS SEEN NEAR THE RIGHT URETEROVESICULAR JUNCTION WITH ONLY MILD UPSTREAM HYDRONEPHROSIS. NO PERIRENAL FLUID COLLECTION OR STRANDING IS IDENTIFIED. 2. ADDITIONAL PUNCTATE NONOBSTRUCTIVE CALCULI ARE SEEN IN THE KIDNEYS BILATERALLY. 3. THERE IS AN IUD IN THE UTERUS. Discussed results with pt. Will start her on flomax and refer her to Urology. - Differential Dx/Diagnosis Provider Diagnosis: Kidney stone Discharge - Sign-Out/Discharge Documenting (check all that apply): Patient Departure All imaging exams completed and their final reports reviewed: Yes - Discharge Plan Condition: Stable Disposition: HOME Prescriptions: Tamsulosin CAP* [Flomax CAP*] 0.4 mg PO DAILY #7 cap Patient Education Materials: Kidney Stones (ED) Referrals: Tiffani Alvarado MD [Primary Care Provider] - Cliff Dee MD [Medical Doctor] - 1 Week Additional Instructions: If you develop a fever, shortness of breath, chest pain, new or worsening symptoms - please call your PCP or go to the ED immediately. Your urine showed no sign of infection today. Your CT scan showed a kidney stone in the area of pain. Please take the medications as prescribed and I recommend that you follow up with Urology at the number below within 1 week - Billing Disposition and Condition Condition: STABLE Disposition: Home
[2018-09-23 13:30] VITALS: BP 108/53
[2018-09-23] MEDS ORDERED: Ketorolac *IM* INJ* 60 MG/2 ML VIAL IM ONE (13:53)
== END 2018-09-23 14:44 | disposition home or self-care (01) ==
LOC: UCCORT 12:42
DX: N20.0 Calculus of kidney (principal); I10 Essential (primary) hypertension; J45.909 Unspecified asthma, uncomplicated; E03.9 Hypothyroidism, unspecified
CPT/HCPCS: 74176; 81003; 96372; 99212; G0463; J1885

== ENCOUNTER 2019-03-25 14:57 | Emergency (ER) | payer OTHER ==
[2019-03-25 15:09] VITALS: BP 124/60
--- NOTE | 2019-03-25 15:26 | UC ---
Abdominal Pain Female HPI - HPI Summary HPI Summary: 49-year-old woman comes in with a chief complaint of abdominal pain around 1 PM today. Patient was standing when the pain came on. No known trauma. Pain is spread across her lower abdomen to the right side. Patient does have a history of kidney stones. Patient reports normal bowel movements and normal urination. She did feel like her abdomen is distended. She did burp a lot which did not decrease the pain. No prior abdominal surgeries. She has had some chills. - History of Current Complaint Chief Complaint: UCAbdominalPain Stated Complaint: ABD PAIN Time Seen by Provider: 03/25/19 15:10 Hx Last Menstrual Period: IUD in place Pain Intensity: 6 Allergies/Adverse Reactions: Allergies Allergy/AdvReac Type Severity Reaction Status Date / Time ERIKA Inhibitors Allergy Unknown Unknown Verified 03/25/19 15:09 Reaction Details Penicillins Allergy Unknown Rash Verified 03/25/19 15:09 Sulfa (Sulfonamide Allergy Unknown Rash And Verified 03/25/19 15:09 Antibiotics) Itching PMH/Surg Hx/FS Hx/Imm Hx Previously Healthy: Yes Endocrine History: Hypothyroidism Cardiovascular History: Hypertension, Congestive Heart Failure - Patient had heart failure after the of one of her children. GI/ History: Gastroesophageal Reflux - Surgical History Surgical History: Yes Surgery Procedure, Year, and Place: Bronchoscopy 2012 Adenoidectomy; Myringotomy Exc; Uterine polyp 09/2013 RIGHT FOOT REMOVED CYSTS - Family History Known Family History: Positive: None, Cardiac Disease, Other - daughter with achalasia - Social History Alcohol Use: None Substance Use Type: None Smoking Status (MU): Never Smoked Tobacco Have You Smoked in the Last Year: No - Immunization History Most Recent Influenza Vaccination: unsure Most Recent Tetanus Shot: unknown Most Recent Pneumonia Vaccination: never Review of Systems All Other Systems Reviewed And Are Negative: Yes Constitutional: Positive: Other - SEE HPI Skin: Positive: Negative Eyes: Positive: Negative ENT: Positive: Negative Respiratory: Positive: Negative Cardiovascular: Positive: Negative Gastrointestinal: Positive: Abdominal Pain, Other - SEE HPI Genitourinary: Positive: Negative Motor: Positive: Negative Neurovascular: Positive: Negative Musculoskeletal: Positive: Negative Neurological: Positive: Negative Psychological: Positive: Negative Is Patient Immunocompromised?: No Physical Exam Triage Information Reviewed: Yes Appearance: Well-Appearing, Well-Nourished, Pain Distress - MILD/MODERATE Vital Signs: Initial Vital Signs Temp 98.4 F 03/25/19 15:00 Pulse 92 03/25/19 15:00 Resp 18 03/25/19 15:00 BP 124/60 03/25/19 15:00 Pulse Ox 100 03/25/19 15:00 Vital Signs Reviewed: Yes Eye Exam: Normal Eyes: Positive: Conjunctiva Clear Neck: Positive: Supple Respiratory: Positive: Lungs clear, Normal breath sounds, No respiratory distress Cardiovascular: Positive: RRR Abdomen Description: Positive: Other: - Tender to palpation left lower quadrant. Hypoactive bowel sounds. No tympany. Bowel Sounds: Positive: Hypoactive Musculoskeletal: Positive: Strength Intact, ROM Intact Neurological: Positive: Alert, Muscle Tone Normal Psychological: Positive: Age Appropriate Behavior Skin Exam: Normal Abd Pain Female Course/Dx - Course Course Of Treatment: Due to the severity of the pain I recommended further evaluation emergency Department. We discussed going by ambulance. Patient prefers to go by POV. Vital signs stable in clinic. I discussed the case with a provider at the [place] emergency department. - Differential Dx/Diagnosis Provider Diagnosis: Abdominal pain Discharge ED - Sign-Out/Discharge Documenting (check all that apply): Patient Departure All imaging exams completed and their final reports reviewed: No Studies - Discharge Plan Condition: Stable Disposition: HOME-RECOMMEND TO ED Patient Education Materials: Acute Abdominal Pain (ED) Referrals: Tiffani Alvarado MD [Primary Care Provider] - Additional Instructions: GO DIRECTLY TO THE EMERGENCY DEPARTMENT FOR FURTHER EVALUATION AND CARE OF YOUR ABDOMINAL PAIN. - Billing Disposition and Condition Condition: STABLE Disposition: Home-Recommend to ED
--- OUTSIDE RECORDS SUMMARY | 2019-03-25 15:32 | XMS REPORT | Continuity of Care Document ---
:1970 External Reference #:[id number] Author Name Petar Ingram M.D. (transmitted by agent of provider Deena Mane ) Address [address], [place] [address] Care Team Providers Name Role Phone Trey Maharaj MD - Obstetrics & Care Team Information Internal Recruiter [phone] Gynecology [facility] - General Care Team Information Internal Recruiter [facility] Efrain Hendrix MD - Obstetrics & Care Team Information Internal Recruiter Gynecology Maikol Oh MD - Gastroenterology Care Team Information Internal Recruiter Nba Kaplan MD - Plastic and Care Team Information Internal Recruiter Reconstructive Surgery Dnagelo Aguilar MD - Otolaryngology Care Team Information Internal Recruiter [phone] Lawrence Wu MD - Pulmonary Disease Care Team Information Internal Recruiter Fernanda Hendrickson MD - Care Team Information Internal Recruiter [phone] Dermatology Maikol Riggins MD - Care Team Information Internal Recruiter [phone] Ophthalmology [facility] - Care Team Information Internal Recruiter [phone] Newspaper [employer] Jared Alberts MD - Orthopaedic Care Team Information Internal Recruiter [phone] Surgery Shaista Dooley MD - Cardiovascular Care Team Information Internal Recruiter [phone] Disease Shabnam Anton MD - Pulmonary Care Team Information Internal Recruiter Disease Nelda Graham MD - Psychiatry Care Team Information Internal Recruiter [phone] Marija Benson MD - Obstetrics & Care Team Information Internal Recruiter [phone] Gynecology Tiffani Alvarado MD - Internal Medicine Care Team Information Internal Recruiter Problems Active Problems Provider Date Chronic diastolic heart failure Levy Baker M.D.,FACP Onset: 2014 Note: EF 54% on echo Moderate persistent asthma Levy Baker M.D.,FACP Onset: 09/25/2014 Obsessive-compulsive disorder Levy Baker M.D.,FACP Onset: 09/25/2014 Congenital hypothyroidism Levy Baker M.D.,FACP Onset: 12/20/2006 Benign secondary hypertension Levy Baker M.D.,FACP Onset: 12/20/2006 Allergic asthma without status Levy Baker M.D.,FACP Onset: 10/18/2007 asthmaticus Hypothyroidism Levy Baker M.D.,FACP Onset: 12/18/2007 Palpitations Delphine Doran D.O. Onset: 02/02/2011 Gastroesophageal reflux disease Levy Baker M.D.,FACP Onset: 2011 Morbid obesity Levy Baker M.D.,FACP Onset: 01/02/2012 Obstructive sleep apnea syndrome Shabnam Anton MD Onset: 2014 Mitral valve regurgitation Levy Baker M.D.,FACP Onset: 07/08/2014 Note: moderate Impaired fasting glycaemia Levy Baker M.D.,FACP Onset: 09/17/2015 Exacerbation of asthma Shabnam Anton MD Onset: 11/19/2015 cardiomyopathy Smitha Ocasio MD, [facility], Onset: 01/26/2017 FSCAI Stress fracture of metatarsal bone Kai Bray MD Onset: 06/02/2017 Spinal stenosis of lumbar region Amol Manjarrez MD Onset: 09/18/2017 Lumbar spondylosis Amol Manjarrez MD Onset: 09/18/2017 Plantar fascial fibromatosis Kai Bray MD Onset: 10/03/2017 Tendon contracture Kai Bray MD Onset: 10/03/2017 Polyneuropathy Petar Ingram M.D. Onset: 11/17/2017 Pain in limb Petar Ingram M.D. Onset: 11/17/2017 Lumbar radiculopathy Petar Ingram M.D. Onset: 11/17/2017 Peroneal tendinitis, left leg Kai Bray MD Onset: 12/04/2017 Mild intermittent asthma Tiffani Alvarado MD Onset: 11/27/2018 Social History Type Date Description Comments Sex Unknown Tobacco Use Start: Unknown Never Smoked Cigarettes ETOH Use Rarely consumes alcohol special occasions, rare Recreational Drug Use Denies Drug Use Tobacco Use Start: Unknown Patient has never smoked Smoking Status Reviewed: 03/04/19 Patient has never smoked Exercise Type/Frequency Exercises sporadically Allergies, Adverse Reactions, Alerts Active Allergies Reaction Severity Comments Date Penicillin rash, itching 12/20/2006 Sulfa rash 08/12/2008 Fantasma Inhibitors [facility] 08/18/2014 Medications Active Medications SIG Qnty Indications Ordering Provider Date Gabapentin 1 capsule three 90caps G62.9 Petar Ingram 03/04/2019 100mg times daily. M.D. Capsules Metoprolol Tartrate 1 by mouth 180tabs Tiffani Alvarado MD 02/14/2019 twice a day 25mg Tablets Levothyroxine Sodium Take One Tablet 30tabs Tiffani Alvarado MD 04/16/2018 By Mouth Every 25mcg Tablets Day Candesartan Cilexetil Take One Tablet 90tabs Tiffani Alvarado MD 01/29/2018 By Mouth Every 32mg Tablets Day Advair HFA inhale one 36units J45.40 Shabnam Anton MD 11/07/2014 puffs by mouth 230-21mcg/Act Aerosol every day Citalopram take one tablet 90tabs F41.1 Tiffani Alvarado MD 10/24/2014 Hydrobromide by mouth every 40mg day. Tablets Pantoprazole Sodium Take One Tablet 180tabs K21.9 Tiffani Alvarado MD 2011 By Mouth Twice 40mg Tablets DR A Day Montelukast Sodium Take One Tablet 90tabs Shabnam Anton MD 11/30/2011 10mg By Mouth Every Tablets Day Zinc Chelated 1 tab daily Unknown 50mg (otc) Tablets Vitamin B12 1 by mouth Unknown 3000mcg every day Tablets Sub Medications Administered in Office Medication SIG Qnty Indications Ordering Provider Date Depomedrol 80MG DAO Brady 07/30/2014 Injection Depomedrol 80MG Jared Alberts M.D. 11/23/2010 Injection Immunizations CPT Code Status Date Vaccine Lot # [id number] Given 02/17/2017 Influenza Virus Vaccine, Quadrivalent, Split, [id number] Preservative Free 60652 Given 08/26/2014 Pneumococcal Conjugate Vaccine 13 Valent For [id number] Intramuscular Use 84846 Given 12/19/2013 Flu Vaccine Split Virus Preservative Free For [id number] Indiv 3Yr Older 19740 Given 12/14/2012 Flu Vaccine Split Virus Preservative Free For [id number] Indiv 3Yr Older [id number] Given 10/28/2011 Fluzone Vaccine [id number] 36580 Given 10/28/2011 Tdap - Tetanus/Diptheria/Acellular Pertussis [id number] 58193 Given 11/22/2010 Influenza Virus 3Yrs & Over [id number] 59560 Given 12/08/2009 Pneumonia Vaccine [id number] 07181 Given 12/08/2009 Influenza Virus 3Yrs & Over [id number] 71951 Given 01/21/2009 Influenza Virus Vaccine, Pandemic Formulation [id number] 62380 Given 01/21/2009 Administration Swine Flu Shot 93584 Given 01/22/2007 Flu Vac (History By Patient> Vital Signs Date Vital Result Comment 03/04/2019 2:12pm Height 68.25 inches 5'8.25" Weight 298.00 lb Heart Rate 77 /min BP Systolic 126 mmHg BP Diastolic 70 mmHg BMI (Body Mass Index) 45.0 kg/m2 11/27/2018 9:51am Height 68.25 inches 5'8.25" Weight 293.00 lb Heart Rate 60 /min BP Systolic Sitting 102 mmHg BP Diastolic Sitting 70 mmHg Body Temperature 97.7 F O2 % BldC Oximetry 97 % BMI (Body Mass Index) 44.2 kg/m2 Results Test Acquired Date Facility Test Result H/L Range Note Cytology 02/26/2019 [facility] Cytology SEE RESULT BELOW 1 , [address] [place] [address] [phone] PDFReport SEE IMAGE Laboratory 10/15/2018 [facility] TSH (Thyroid 1.13 Normal 0.34 -5.60 test finding [address] Stim Horm) mcIU/[place] [address] [phone] Free T4 (Free Thyroxine) 0.91 ng/dL Normal 0.61-1.12 Urinalysis Profile 10/14/2018 [facility] Urine Color Yellow [address] [place] [address] [phone] Urine Appearance Cloudy Urine Specific [place]cca 1.024 Normal 1.010-1.030 Urine pH 6.0 Normal 5-9 Urine Urobilinogen Negative Negative Urine Ketones Negative Negative Urine Protein Negative Negative Urine Leukocytes 1+ Abnormal Negative Urine Blood 1+ Abnormal Negative Urine Nitrite Negative Negative Urine Bilirubin Negative Negative Urine Glucose Negative Negative Urine White Blood Cell 1+(6-10/hpf) Abnormal Absent Urine Red Blood Cell 3+(>10/hpf) Abnormal Absent Urine Bacteria Absent Absent Urine Squamous Epithelial Cell Present Abnormal Absent Urine Culture And 10/14/2018 [facility] Urine SEE RESULT [address] [place] [address] [phone] CBC Auto Diff 10/14/2018 [facility] White Blood 12.3 High 3.5- [address] Count 10^3/uL 0.8 [place] [address] [phone] Red Blood Count 4.37 10^6/uL Normal 3.70-4.87 Hemoglobin 13.0 g/dL Normal 12.0-16.0 Hematocrit 38 % Normal 35-47 Mean Corpuscular Volume 87 fL Normal 80-97 Mean Corpuscular Hemoglobin 30 pg Normal 27-31 Mean Corpuscular HGB Conc 34 g/dL Normal 31-36 Red Cell Distribution Width 13 % Normal 10-15 Platelet Count 252 10^3/uL Normal 150-450 Mean Platelet Volume 9.1 fL Normal 7.4-10.4 Abs Neutrophils 9.5 10^3/uL High 1.5-7.7 Abs Lymphocytes 1.9 10^3/uL Normal 1.0-4.8 Abs Monocytes 0.6 10^3/uL Normal 0-0.8 Abs Eosinophils 0.2 10^3/uL Normal 0-0.6 Abs Basophils 0.1 10^3/uL Normal 0-0.2 Abs Nucleated RBC 0.0 10^3/uL Granulocyte % 77.7 % Lymphocyte % 15.3 % Monocyte % 5.0 % Eosinophil % 1.6 % Basophil % 0.4 % Nucleated Red Blood Cells % 0.0 Comp Metabolic 10/14/2018 [facility] Sodium 137 mmol/L Normal 135-[address] [place] [address] [phone] Potassium 4.1 mmol/L Normal 3.5-5.0 Chloride 104 mmol/L Normal 101-111 Co2 Carbon Dioxide 27 mmol/L Normal 22-32 Anion Gap 6 mmol/L Normal 2-11 Glucose 131 mg/dL High 70-100 Blood Urea Nitrogen 23 mg/dL Normal 6-24 Creatinine 0.90 mg/dL Normal 0.51-0.95 BUN/Creatinine Ratio 25.6 High 8-20 Calcium 9.5 mg/dL Normal 8.6-10.3 Total Protein 6.7 g/dL Normal 6.4-8.9 Albumin 4.1 g/dL Normal 3.2-5.2 Globulin 2.6 g/dL Normal 2-4 Albumin/Globulin Ratio 1.6 Normal 1-3 Total Bilirubin 0.40 mg/dL Normal 0.2-1.0 Alkaline Phosphatase 69 U/L Normal 34-104 Alt 20 U/L Normal 7-52 Ast 17 U/L Normal 13-39 Egfr Non- 67.4 >60 Egfr 81.6 >60 4 Poc Urinalysis 09/23/2018 [facility] Poc Glucose, Negative Negative [address] [place] [address] [phone] Poc Bilirubin, Urine Negative Negative Poc Ketone, Urine Negative Negative Poc Specific [place], Urine 1.025 Normal 1.010-1.030 Poc Blood, Urine Negative Negative Poc pH, Urine 5.5 Normal 5-9 Poc Protein, Urine Negative Negative Poc Urobilinogen, Urine 0.2 Negative Poc Nitrite, Urine Negative Negative Poc Leukocytes, Urine Negative Negative Poc Color, Urine Yellow Poc Clarity, Urine Clear 5 1 [id number] 2 SEE RESULT BELOW Name: SABRINA IZAGUIRRE : [address]: Marija Benson MD Acct: [id number] Unit: [id number] AGE: 49 Location: [facility] Re02/26/19 SEX: F Status: REG REF SPEC: [id number] BELEN: 02/26/19-[address] [facility] [address]: Marija Benson MD REQ: [id number] RECD: 02/26/19 STATUS: LAVINIA LAL DR: Tiffani Alvarado MD _ ORDERED: TP IMAGE ANALYS, HPV/Thin Prep COMMENTS: [id number] FINAL DIAGNOSIS Negative for Intraepithelial lesion or Malignancy HPV RESULTS Date Time Test Result Flag (u) Normal Range 02/26/19 1059 HPV PATRICK Negative Negative The high-risk HPV types detected by the assay include: 16, 18, 31, 33, 35, 39, 45, 51, 52, 56, 58, 59, 66, and 68. SPECIMEN(S) RECEIVED A. Ectocervical/Endocervical CYTOLOGY ADEQUACY Specimen Adequacy: Satisfactory of evaluation Transformation zone component identified CONTINUED ON NEXT PAGE DEPARTMENT OF PATHOLOGY, [address] [place] [address] Lyle Vásquez M.D. Director [facility] # [id number] CYTOLOGY PATIENT INFORMATION Patient Information: HPV: High risk HPV RNA testing regardless of pap results. Actual Specimen Date: 02/26/19 LMP If Unknown: none with- IUD Date of Last Specimen: 09/25/15 Signed by and Reported on: CELESTE Tena (ASCP) [id number] This Pap test was evaluated with the assistance of the VisierPrep Test Imaging System. Due to cytologic findings at the mud jack nozzleman microscope, comprehensive manual rescreening by a Fish Seiner may be required. The Pap Smear is a screening test designed to aid in the detection of premalignant and malignant conditions of the uterine cervix. It is not a diagnostic procedure and should not be used as the sole means of detecting cervical cancer. Both false- positive and false- negative reports do occur. Depending on your risk status, a Pap smear should be obtained and evaluated every 1-3 years. END OF REPORT DEPARTMENT OF PATHOLOGY, [address] [place] [address] Lyle Vásquez M.D. Director [facility] # [id number] 3 SEE RESULT BELOW Name: SABRINA IZAGUIRRE : [address]: Nathanael Barksdale MD Acct: [id number] Unit: [id number] AGE: 48 Location: ED Re10/14/18 SEX: F Status: DEP ER SPEC: [id number] BELEN: 10/14/[address]: Talat HENDERSON REQ: [id number] RECD: 10/14/18 STATUS: DESTINY LAL DR: Tiffani Barksdale MD _ SOURCE: URINE SPDESC: ORDERED: Urine Culture Procedure Result Reported Site Urine Culture Final 10/15/18- 808 ML No growth of clinically significant organisms * ML - Main Lab . END OF REPORT DEPARTMENT OF PATHOLOGY, [address] [place] [address] Lyle Vásquez M.D. Director [facility] # [id number] 4 Because ethnic data is not always readily available, this report includes an eGFR for both -Americans and non- Americans. The National Kidney Disease Education Program (NKDEP) does not endorse the use of the MDRD equation for patients that are not between the ages of 18 and 70, are , have extremes of body size, muscle mass, or nutritional status, or are non- or non-. According to the National Kidney Foundation, irrespective of diagnosis, the stage of the disease is based on the level of kidney function: Stage Description GFR(mL/min/1.73 m(2)) 1 Kidney damage with normal or decreased GFR 90 2 Kidney damage with mild decrease in GFR 60-89 3 Moderate decrease in GFR 30-59 4 Severe decrease in GFR 15-29 5 Kidney failure <15 (or dialysis) 5 Glass Cutter Hand: [id number] Procedures Date Code Description Status 09/21/2017 [id number] Mammogram Completed 09/19/2013 [id number] Diabetic Foot Exam Completed 05/30/2013 [id number] Diabetic Foot Exam Completed 12/19/2012 [id number] Mammogram Completed 07/30/2010 [id number] Diabetic Foot Exam Completed 11/06/2008 [id number] Diabetic Foot Exam Completed Medical Devices Description No Information Available Encounters Type Date Location Provider Dx Diagnosis Office Visit 03/04/2019 [facility] Petar Ingram, G62.9 Polyneuropathy, 2:00p [facility] unspecified M79.672 Pain in left foot M54.16 Radiculopathy, lumbar region M72.2 Plantar fascial fibromatosis Office Visit 11/27/2018 9:40a [facility] Tiffani Christiano, E03.9 Hypothyroidism, Medicine - MD unspecified Ccmob G62.9 Polyneuropathy, unspecified N20.0 Calculus of kidney I10 Essential (primary) hypertension I42.9 Cardiomyopathy, unspecified E66.01 Morbid (severe) obesity due to excess calories J45.20 Mild intermittent asthma, uncomplicated Office Visit 10/29/2018 9:00a [facility] Nereida Santillan N20.0 Calculus of MD Zonia kidney Z68.41 Body mass index (BMI) 40.0-44.9, adult Assessments Date Code Description Provider 03/04/2019 G62.9 Polyneuropathy, unspecified Petar Ingram M.D. 03/04/2019 M79.672 Pain in left foot Petar Ingram M.D. 03/04/2019 M54.16 Radiculopathy, lumbar region Petar Ingram M.D. 03/04/2019 M72.2 Plantar fascial fibromatosis Petar Ingram M.D. 11/27/2018 E03.9 Hypothyroidism, unspecified Tiffani Alvarado MD 11/27/2018 G62.9 Polyneuropathy, unspecified Tiffani Alvarado MD 11/27/2018 N20.0 Calculus of kidney Tiffani Alvarado MD 11/27/2018 I10 Essential (primary) hypertension Tiffani Alvarado MD 11/27/2018 I42.9 Cardiomyopathy, unspecified Tiffani Alvarado MD 11/27/2018 E66.01 Morbid (severe) obesity due to excess Tiffani Alvarado MD calories 11/27/2018 J45.20 Mild intermittent asthma, uncomplicated Tiffani Alvarado MD 10/29/2018 N20.0 Calculus of kidney Nereida Brar MD 10/29/2018 Z68.41 Body mass index (BMI) 40.0-44.9, adult Nereida Brar MD Plan of Treatment Future Appointment(s):07/23/2019 9:15 am - Petar Ingram M.D. at [facility]06/04/2019 9:40 am - Tiffani Alvarado MD at [facility] Internal Medicine - [facility]08/06/2019 10:30 am - Shabnam Anton MD at [facility]03/04/2019 - Petar Ingram M.D.G62.9 Polyneuropathy, unspecifiedNew Medication:Gabapentin 100 mg - 1 capsule three times daily.Follow up:Follow up in 4 kyvsygS54.672 Pain in left footM54.16 Radiculopathy, lumbar cuwjmqZ99.2 Plantar fascial fibromatosis Functional Status Description No Information Available Mental Status Description No Information Available Referrals Refer to Reason for Referral Status Appt Date Lawrence Lutz MD Sent 10/29/2018 [address] [place] [address] [phone]
--- OUTSIDE RECORDS SUMMARY | 2019-03-25 15:32 | XMS REPORT | Continuity of Care Document ---
:1970 External Reference #:[id number] Author Name Kai Bray MD (transmitted by agent of provider Delphine Mendoza) Address [address] [place] [id number] Care Team Providers Name Role Phone Trey Maharaj MD - Obstetrics & Care Team Information Police And Fire Dispatcher [phone] [facility] [place] - General Care Team Information Police And Fire Dispatcher [facility] Efrain Hendrix MD - Obstetrics & Care Team Information Police And Fire Dispatcher Gynecology Maikol Oh MD - Gastroenterology Care Team Information Police And Fire Dispatcher Nba Kaplan MD - Plastic and Care Team Information Police And Fire Dispatcher Reconstructive Surgery Dangelo Aguilar MD - Otolaryngology Care Team Information Police And Fire Dispatcher Lawrence Wu MD - Pulmonary Disease Care Team Information Police And Fire Dispatcher Fernanda Hendrickson MD - Care Team Information Police And Fire Dispatcher [phone] Dermatology Maikol Riggins MD - Care Team Information Police And Fire Dispatcher [phone] Ophthalmology [facility] - Care Team Information Police And Fire Dispatcher [phone] [employer] Slide Machine Setter Jared Alberts MD - Orthopaedic Care Team Information Police And Fire Dispatcher Surgery Shaista Dooley MD - Cardiovascular Care Team Information Police And Fire Dispatcher Disease Shabnam Anton MD - Pulmonary Care Team Information Police And Fire Dispatcher Disease Nelda Graham MD - Psychiatry Care Team Information Police And Fire Dispatcher [phone] Marija Benson MD - Obstetrics & Care Team Information Police And Fire Dispatcher [phone] Gynecology Tiffani Alvarado MD - Internal Medicine Care Team Information Police And Fire Dispatcher Problems Active Problems Provider Date Chronic diastolic [...] Shabnam Anton MD Onset: 11/19/2015 cardiomyopathy Smitha Ocasoi MD, [facility], Onset: 01/26/2017 [facility] Stress fracture of metatarsal [...] intermittent asthma Tiffani Alvarado MD Onset: 11/27/2018 Tibialis tendinitis Kai Bray MD Onset: 03/19/2019 Social History Type Date Description Comments Sex Unknown Tobacco Use Start: Unknown Never Smoked Cigarettes ETOH Use Rarely consumes alcohol special occasions, rare Recreational Drug Use Denies Drug Use Tobacco Use Start: Unknown Patient has never smoked Smoking Status Reviewed: 03/19/19 Patient has never smoked Exercise Type/Frequency Exercises sporadically Allergies, Adverse Reactions, Alerts Active Allergies Reaction Severity Comments Date Penicillin rash, itching 12/20/2006 Sulfa rash 08/12/2008 Fantasma Inhibitors [facility] 08/18/2014 Medications Active Medications SIG Qnty Indications Ordering Provider Date Metoprolol Tartrate 1 by mouth 180tabs Tiffani Alvarado MD 02/14/2019 25mg twice a day Tablets Levothyroxine Sodium Take One Tablet 30tabs Tiffani Alvarado MD 04/16/2018 By Mouth Every 25mcg Tablets Day Candesartan Cilexetil Take One Tablet 90tabs Tiffani Alvarado MD 01/29/2018 By Mouth Every 32mg Tablets Day Advair HFA inhale one 36units J45.40 Shabnam Anton, 11/07/2014 230-21mcg/Act puffs by mouth Aerosol every day Citalopram take one tablet 90tabs F41.1 Tiffani Alvarado MD 10/24/2014 Hydrobromide by mouth every 40mg Tablets day. Pantoprazole Sodium Take One Tablet 180tabs K21.9 Tiffani Alvarado MD 2011 40mg By Mouth Twice Tablets DR A Day Montelukast Sodium Take One Tablet 90tabs Shabnam Anton, 11/30/2011 10mg By Mouth Every MD Tablets Day Zinc Chelated 1 tab daily Unknown 50mg (otc) Tablets Vitamin B12 1 by mouth Unknown 3000mcg every day Tablets Sub History Medications Gabapentin 1 capsule three 90caps G62.9 Petar Ingram, 03/04/2019 - 100mg times daily. M.DRos 03/18/2019 Capsules Medications Administered in Office Medication SIG Qnty Indications Ordering Provider Date Depomedrol 80MG DAO Brady 07/30/2014 Injection Depomedrol 80MG Jared Alberts M.D. 11/23/2010 Injection Immunizations CPT Code Status Date Vaccine Lot # [id number] Given 02/17/2017 Influenza Virus Vaccine, Quadrivalent, Split, [id number] Preservative Free 29989 Given 08/26/2014 Pneumococcal Conjugate Vaccine 13 Valent For [id number] Intramuscular Use 00623 Given 12/19/2013 Flu Vaccine Split Virus Preservative Free For [id number] Indiv 3Yr Older 83501 Given 12/14/2012 Flu Vaccine Split Virus Preservative Free For [id number] Indiv 3Yr Older [id number] Given 10/28/2011 Fluzone Vaccine [id number] Given 10/28/2011 Tdap - Tetanus/Diptheria/Acellular Pertussis [id number] 28392 Given 11/22/2010 Influenza Virus 3Yrs & Over [id number] 54821 Given 12/08/2009 Pneumonia Vaccine [id number] 36045 Given 12/08/2009 Influenza Virus 3Yrs & Over [id number] 52452 Given 01/21/2009 Influenza Virus Vaccine, Pandemic Formulation [id number] 41671 Given 01/21/2009 Administration Swine Flu Shot 64248 Given 01/22/2007 Flu Vac (History By Patient> Vital Signs Date Vital Result Comment 03/19/2019 10:02am Height 68.25 inches 5'8.25" Heart Rate 89 /min BP Systolic 106 mmHg BP Diastolic 60 mmHg Respiratory Rate 20 /min Body Temperature 97.5 F Pain Level 4 03/04/2019 2:12pm Height 68.25 inches 5'8.25" Weight 298.00 lb Heart Rate 77 /min BP Systolic 126 mmHg BP Diastolic 70 mmHg BMI (Body Mass Index) 45.0 kg/m2 Results Test Acquired Date Facility Test Result H/L Range Note Cytology 02/26/2019 [facility] Cytology SEE RESULT BELOW 1 , [address] [place] [address] [phone] PDFReport SEE IMAGE Laboratory 10/15/2018 [facility] TSH (Thyroid 1.13 Normal 0.34 -5.60 test finding [address] Stim Horm) mcIU/[place] [address] [phone] Free T4 (Free Thyroxine) 0.91 ng/dL Normal 0.61-1.12 Urinalysis Profile 10/14/2018 [facility] Urine Color Yellow [address] [place] [address] [phone] Urine Appearance Cloudy Urine Specific Powell 1.024 Normal 1.010-1.030 Urine pH 6.0 Normal [...] Present Abnormal Absent Urine Culture And 10/14/2018 [facility] Urine SEE RESULT [address] [place] [address] [phone] CBC Auto Diff 10/14/2018 [facility] White Blood 12.3 High 3.5- [address] Count 10^3/uL 0.8 [place] [address] [phone] Red Blood Count 4.37 10^6/uL Normal 3.70-4.87 [...] Blood Cells % 0.0 Comp Metabolic 10/14/2018 [facility] Sodium 137 mmol/L Normal 135-[address] [place] [address] [phone] Potassium 4.1 mmol/L Normal 3.5-5.0 Chloride 104 [...] Egfr 81.6 >60 4 Poc Urinalysis 09/23/2018 [facility] Poc Glucose, Negative Negative [address] [place] [address] [phone] Poc Bilirubin, Urine Negative Negative Poc Ketone, Urine Negative Negative Poc Specific Powell, Urine 1.025 Normal 1.010-1.030 Poc Blood, Urine Negative Negative Poc pH, Urine 5.5 Normal 5-9 Poc Protein, Urine Negative Negative Poc Urobilinogen, Urine 0.2 Negative Poc Nitrite, Urine Negative Negative Poc Leukocytes, Urine Negative Negative Poc Color, Urine Yellow Poc Clarity, Urine Clear 5 1 [id number] 2 SEE RESULT BELOW Name: SABRINA IZAGUIRRE : [address]: Marija Benson MD Acct: [id number] Unit: [id number] AGE: 49 Location: [facility] Re02/26/19 SEX: F Status: REG REF SPEC: [id number] BELEN: 02/26/19-[address]: Marija Benson MD REQ: [id number] RECD: 02/26/19-172 STATUS: LAVINIA LAL DR: Tiffani Alvarado MD _ ORDERED: TP IMAGE ANALYS, HPV/Thin Prep COMMENTS: [id number] FINAL DIAGNOSIS Negative for Intraepithelial lesion or [...] CONTINUED ON NEXT PAGE DEPARTMENT OF PATHOLOGY, [facility] [employer] [place], [place] [address] Lyle Vásquez M.D. Director [facility] # [id number] CYTOLOGY PATIENT INFORMATION Patient Information: HPV: High risk HPV RNA testing regardless of pap results. Actual Specimen Date: 02/26/19 LMP If Unknown: none with- IUD Date of Last Specimen: 09/25/15 Signed by and Reported on: CELESTE Tena (ASCP) [id number] This Pap test was evaluated with the assistance of the [employer] Test Imaging System. Due to cytologic findings at the exchange specialist microscope, comprehensive manual rescreening by a Meat Curer may be required. The Pap Smear is [...] years. END OF REPORT DEPARTMENT OF PATHOLOGY, [facility] [employer] [place], [place] [address] Lyle Vásquez M.D. Director [facility] # [id number] 3 SEE RESULT BELOW Name: SABRINA IZAGUIRRE : [address]: Nathanael Barksdale MD Acct: [id number] Unit: [id number] AGE: 48 Location: ED Re10/14/18 SEX: F Status: DEP ER SPEC: [id number] BELEN: 10/14/[address]: Talat HENDERSON REQ: [id number] RECD: 10/14/18 STATUS: COMP OTHR DR: Tiffani Barksdale MD _ SOURCE: URINE SPDESC: ORDERED: Urine Culture Procedure Result Reported Site Urine Culture Final 10/15/18- 808 ML No growth of clinically significant organisms * ML - Main Lab . END OF REPORT DEPARTMENT OF PATHOLOGY, [address] [place] [address] Lyle Vásquez M.D. Director [facility] # [id number] 4 Because ethnic data is not always [...] 5 Kidney failure <15 (or dialysis) 5 Installation And Repair Technician: [id number] Procedures Date Code Description Status 09/21/2017 [id number] Mammogram Completed 09/19/2013 [id number] Diabetic Foot Exam Completed 05/30/2013 259391053 Diabetic Foot Exam Completed 12/19/2012 59152058 Mammogram Completed 07/30/2010 290631737 Diabetic Foot Exam Completed 11/06/2008 [id number] Diabetic Foot Exam Completed Medical Devices Description No Information Available Encounters Type Date Location Provider Dx Diagnosis Office Visit 03/04/2019 [facility] Nathanielmiryam Juan Jose, G62.9 Polyneuropathy, 2:00p [facility] [...] intermittent asthma, uncomplicated Office Visit 10/29/2018 9:00a [facility] Nephrology Nereida Santillan N20.0 Calculus of MD Zonia kidney Z68.41 Body mass index (BMI) 40.0-44.9, adult Assessments Date Code Description Provider 03/19/2019 M72.2 Plantar fascial fibromatosis Kai Bray MD 03/19/2019 M76.822 Posterior tibial tendinitis, left leg Kai Bray MD 03/19/2019 M67.02 Short Achilles tendon (acquired), left Kai Bray MD ankle 03/04/2019 G62.9 Polyneuropathy, unspecified Petar Ingram M.D. [...] 9:15 am - Petar Ingram M.D. at [facility]06/04/2019 9:40 am - Tiffani Alvarado MD at [facility] 10:30 am - Shabnam Anton MD at [facility]03/19/2019 - Kai Bray, MDM72.2 Plantar fascial fibromatosisFollow up:Follow Up: As paposuT20.822 Posterior tibial tendinitis , left legNew Therapy:Physical HtikgluB30.02 Short Achilles tendon (acquired), left ankle Functional Status Description No Information Available Mental Status Description No Information Available Referrals Refer to Reason for Referral Status Appt Date Lawrence Lutz MD Sent 10/29/2018 [address] [place] [address] [phone]
== END 2019-03-25 15:31 | disposition home health service (06) ==
LOC: UCCORT 14:57
DX: R10.9 Unspecified abdominal pain (principal); I10 Essential (primary) hypertension; I50.9 Heart failure, unspecified; Z88.0 Allergy status to penicillin; Z88.2 Allergy status to sulfonamides; Z88.8 Allergy status to other drugs, medicaments and biological substances
CPT/HCPCS: 99212; G0463